=== PATIENT | female | born 1945 | race African-American/Black ===

== ENCOUNTER 2017-12-02 10:45 | Emergency (ER) | payer MEDICARE, OTHER ==
[~2017-12-02] VITALS: Ht 162.6 cm; Wt 68.0 kg
[~2017-12-02 10:45] MED LIST: ABIL5TAB6 PO; BACL20TA PO; BENZ1TAB PO; CITA20TA4 PO; DONE10TA14; ERGO50000 PO; NORC10TA2 PO; POTA-243 PO; REME45TA PO; TEMA15 PO
[2017-12-02 10:57] VITALS: BP 190/82; PULSE 78; RESP 16; TEMP 98.6; O2SAT 99
--- NOTE | 2017-12-02 11:26 | PD ---
HPI Chief Complaint: Fall Time Seen by Provider: 11:13 Travel History International Travel<30 days: No Contact w/Intl Traveler<30days: No Traveled to known affect area: No History of Present Illness HPI 72-year-old -[place] female with history of Lewy body dementia, and resting tremor presents to the emergency department with her daughter after falling twice in the last 2 days. Patient now is complaining of right shoulder and knee pain. She normally uses a walker at home. Her chief complaint is pain in the right shoulder, and an aching in the right knee. She is noted to have some mild swelling to the ankles as well. She is not complaining of ankle pain. Pain in the shoulder is 7 out of 10. Worse with movement. Pain in the knee is 6 out of 10. Worse with ambulation. Patient denies syncope, hitting her head, neck pain, loss of consciousness, or other symptoms. Patient is allergic to aspirin, and penicillin PFSH Past Medical History Anxiety: Yes Depression: Yes High Cholesterol: Yes Dementia: Yes Diabetes: No Diminished Hearing: No Hypertension: Yes Migraines: Yes Menopausal: Yes Past Surgical History Hysterectomy: No Social History Alcohol Use: No Tobacco Use: No (former) Substance Use: No Allergies-Medications (Allergen,Severity, Reaction): Coded Allergies: penicillin G (Unverified Allergy, Severe, 12/02/17) aspirin (Unverified Allergy, Mild, 12/02/17) Reported Meds & Prescriptions Reported Meds & Active Scripts Active Reported Vardaman 10-325 mg (Hydrocodone-Acetaminophen 10-325 mg) 1 Tab 1 Tab PO Q4H PRN Citalopram Hydrobromide 20 Mg Tab 20 Mg PO DAILY Donepezil 10 mg 10 Mg Tab Benztropine Mesylate 1 Mg Tab 1 Mg PO DAILY Remeron 45 mg (Mirtazapine) 45 Mg Tab 1 Tab PO HS Abilify 5 mg (Aripiprazole) 5 Mg Tab 5 Mg PO DAILY Vitamin D / Drisdol 50,000 Units (Ergocalciferol) 50,000 Units Cap 1 Cap PO Q7D Klor-Con 10 Meq (Potassium Chloride) 10 Meq Tabcr 10 Meq PO DAILY Restoril 15 mg (Temazepam) 15 Mg Cap 1 Cap PO HS Lioresal (Baclofen) 20 Mg Tab 20 Mg PO BID Review of Systems Except as stated in HPI: all other systems reviewed are Neg General / Constitutional: No: Fever Eyes: No: Visual changes HENT: No: Headaches Cardiovascular: No: Chest Pain or Discomfort Respiratory: No: Shortness of Breath Gastrointestinal: No: Abdominal Pain Genitourinary: No: Dysuria Musculoskeletal: No: Pain Skin: No Rash Neurologic: No: Weakness Psychiatric: No: Depression Endocrine: No: Polydipsia Hematologic/Lymphatic: No: Easy Bruising Physical Exam Narrative GENERAL: Patient appears in no acute distress. She is noted to have a resting tremor. SKIN: Warm and dry. Normal color. Normal turgor. No signs of trauma. HEAD: Atraumatic. Normocephalic. Nontender. EYES: Pupils equal and round. No scleral icterus. No injection or drainage. ENT: No nasal bleeding or discharge. Mucous membranes pink and moist. Pharynx is clear. Airways patent. NECK: Trachea midline. No bony tenderness or step-off. Range of motion is full and supple. CARDIOVASCULAR: Regular rate and rhythm. RESPIRATORY: No accessory muscle use. Clear to auscultation. Breath sounds equal bilaterally. GASTROINTESTINAL: Abdomen soft, non-tender, nondistended. Hepatic and splenic margins not palpable. MUSCULOSKELETAL: Extremities without clubbing, cyanosis, or edema. No obvious deformities. Patient has tenderness in the posterior right shoulder, however range of motion is intact with mild to moderate tenderness. She has normal logistics supervisor strength. She has complaints of mild right wrist discomfort with flexion and extension. Patient's right knee appears normal, and without crepitus. There is no laxity. Patient complains of "aching" in the right knee with motion. Both ankles are nontender with palpation. She is noted to have less than 1+ pedal edema. NEUROLOGICAL: Awake and alert. No obvious cranial nerve deficits. Motor grossly within normal limits. Five out of 5 muscle strength in the arms and legs. Normal speech. PSYCHIATRIC: Appropriate mood and affect; insight and judgment normal. Data Data Last Documented VS Vital Signs Date Time Temp Pulse Resp B/P (MAP) Pulse Ox O2 Delivery O2 Flow Rate FiO2 12/02/17 11:11 73 20 98 Room Air 12/02/17 10:57 98.6 190/82 (118) Orders Orders Knee, Complete (4vws) (12/02/17 11:20) Shoulder, Complete (>2vws) (12/02/17 11:20) [facility] Medical Decision Making Medical Screen Exam Complete: Yes Emergency Medical Condition: Yes Differential Diagnosis Recurrent falls. Right shoulder contusion. Right shoulder strain. Fracture. Right knee pain. Right knee effusion. Arthritis. Narrative Course Patient is medically stable at time of exam. X-ray of the right shoulder and knee are ordered. X-rays show Arthritic changes without Acute finding. Patient is felt stable for discharge home. Patient will be placed on meloxicam 7.5 mg daily #20. Patient also given tramadol 50 mg 1 every 6 hours as needed pain #20 Patient is to continue to be careful with ambulation and always use her walker. Patient to follow-up with her primary care physician in the next week to ensure improvement. Diagnosis Primary Impression: Recurrent falls Additional Impressions: Contusion of right shoulder region Qualified Codes: S40.011A - Contusion of right shoulder, initial encounter Arthralgia of right knee Referrals: Primary Care Physician Patient Instructions: Fall Prevention for Older Adults (DC), General Instructions, Osteoarthritis (ED) Additional Instructions: X-rays show Arthritic changes without Acute finding. Patient is felt stable for discharge home. Patient will be placed on meloxicam 7.5 mg daily #20. Patient also given tramadol 50 mg 1 every 6 hours as needed pain #20 Patient is to continue to be careful with ambulation and always use her walker. Patient to follow-up with her primary care physician in the next week to ensure improvement. Disposition: 01 DISCHARGE HOME Condition: Stable Ayush Castrejon December 02, 2017 11:26
--- NOTE | 2017-12-02 11:54 | RADRPT ---
EXAM DATE: 12/02/2017 11:47 AM EDT AGE/SEX: 72 years / Female INDICATIONS: Fell yesterday.Right knee pain CLINICAL DATA: This is the patient's initial encounter. Patient reports that signs and symptoms have been present for 2 days and indicates a pain score of 10/10. MEDICAL/SURGICAL HISTORY: None. None. COMPARISON: No prior [place] exams available for comparison. FINDINGS: Mild degenerative changes evident with minimal articular cartilage calcification. Trace joint effusion Osteophytes in the patellofemoral compartment On the oblique of the patella there is a suggestion of a patellar fracture. Patella films would be of benefit. CONCLUSION: Degenerative changes, trace joint effusion. Patella films are suggested. Electronically signed by: Gerry Briseno MD 12/02/2017 11:53 AM EDT
--- NOTE | 2017-12-02 11:55 | RADRPT ---
EXAM DATE: 12/02/2017 11:52 AM EDT AGE/SEX: 72 years / Female INDICATIONS: Right shoulder pain, fell yesterday. CLINICAL DATA: This is the patient's initial encounter. Patient reports that signs and symptoms have been present for 3 days and indicates a pain score of 8/10. MEDICAL/SURGICAL HISTORY: None. None. COMPARISON: No prior [place] exams available for comparison. FINDINGS: Bony structures are intact and in normal alignment. Joints are intact without dislocation or signifi cant arthropathy. Osseous density is normal. Soft tissues are unremarkable. No radiopaque foreign bodies seen. CONCLUSION: Negative trauma study. Electronically signed by: Nathaniel Darling MD 12/02/2017 11:54 AM EDT
[2017-12-02] MEDS ORDERED: MELO7.5T27 PO (12:31)
[2017-12-02] MEDS ORDERED: TRAM50TA PO (12:31)
[2017-12-02 13:20] VITALS: BP 170/70
== END 2017-12-02 13:25 | disposition home or self-care (01) ==
LOC: NEPC 10:45
DX: S40.011A Contusion of right shoulder, initial encounter (principal); M25.561 Pain in right knee; I10 Essential (primary) hypertension; W19.XXXA Unspecified fall, initial encounter; Z87.891 Personal history of nicotine dependence
CPT/HCPCS: 73030; 73564; 99284